=== PATIENT | male | born 2000 | race Caucasian/White ===

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

== ENCOUNTER 2021-05-31 19:03 | Emergency (ER) | payer OTHER ==
[~2021-05-31] VITALS: Ht 175.3 cm; Wt 76.1 kg
[2021-05-31] MEDS ORDERED: NORTRIPTYLINE H10 MG PO (19:18)
[2021-05-31] MEDS ORDERED: OMEPRAZOLE20 MG PO (19:18)
[2021-05-31] MEDS ORDERED: ONDANSETRON ODT4 MG PO (20:54)
[2021-05-31] MEDS ORDERED: PEPCID20 MG PO (20:54)
[2021-05-31] MEDS ORDERED: CAPSAICIN42.5 GM TOP (20:54)
--- NOTE | 2021-06-02 14:53 | EKG ---
[facility] [address] [facility] [place] [address] Signed Normal sinus rhythm with sinus arrhythmia Rightward axis Borderline ECG When compared with ECG of 16-JAN-2019 14:03, No significant change was found Confirmed by MARCY LOBATO MD ([id number]) on 06/02/2021 2:53:37 PM Electronically Signed By: MARCY LOBATO MD 06/02/21 1453 PATIENT NAME: MUNIRWILLIE EMELIA Electrocardiogram DATE OF : 01 PHYSICIAN: MARCY LOBATO MD REPORT #: [id number] REPORT IS CONFIDENTIAL AND NOT TO BE RELEASED WITHOUT AUTHORIZATION
== END 2021-05-31 21:21 | disposition home or self-care (01) ==
LOC: ED 19:03
DX: R10.12 Left upper quadrant pain (principal); E87.6 Hypokalemia; E83.42 Hypomagnesemia; R11.2 Nausea with vomiting, unspecified; F12.90 Cannabis use, unspecified, uncomplicated; Z79.899 Other long term (current) drug therapy
CPT/HCPCS: 36415; 71045; 80053; 81001; 83690; 83735; 85025; 93005; 93010; 96374; 96375; 99284-25; J1790; J7121